=== PATIENT | female | born 1950 | race Caucasian/White ===

== ENCOUNTER → 2023-08-14 06:30 | Outpatient (REF) | payer MEDICARE, OTHER, SELFPAY ==
[2023-08-14 08:14] LABS: Free T4 1.86 ng/dl (0.78-2.19)
== END ==
LOC: RAD 06:30
PROVIDERS: ATTENDING PHYSICIAN Internal Medicine Endocrinology, Diabetes & Metabolism; FAMILY PHYSICIAN Family Medicine
DX: E03.9 Hypothyroidism, unspecified (principal); Z85.850 Personal history of malignant neoplasm of thyroid
CPT/HCPCS: 36415; 76536; 84439; 84443

== ENCOUNTER → 2024-10-08 06:28 | Outpatient (REF) | payer MEDICARE, OTHER, SELFPAY ==
[2024-10-08 07:59] LABS: TSH < 0.02 uIU/ml (0.47-4.68)
[2024-10-09 21:17] LABS: Thyroglobulin <0.1 ng/mL (1.3-31.8); Thyroglobulin Antibodies <1.5 IU/mL (0.0-4.0)
== END ==
LOC: REG 06:28
PROVIDERS: ATTENDING PHYSICIAN Internal Medicine Endocrinology, Diabetes & Metabolism; FAMILY PHYSICIAN Family Medicine
DX: E03.9 Hypothyroidism, unspecified (principal)
CPT/HCPCS: 36415; 84432; 84439; 84443; 86800

== ENCOUNTER → 2024-11-24 06:40 | Outpatient (REF) | payer MEDICARE, OTHER, SELFPAY ==
[2024-11-24 08:28] LABS: TSH 0.41 uIU/ml (0.47-4.68)
== END ==
LOC: REG 06:40
PROVIDERS: ATTENDING PHYSICIAN Internal Medicine Endocrinology, Diabetes & Metabolism; FAMILY PHYSICIAN Family Medicine
DX: E03.9 Hypothyroidism, unspecified (principal)
CPT/HCPCS: 36415; 84439; 84443